=== PATIENT | female | born 1970 | race American Indian/Alaskan Native ===

== ENCOUNTER 2020-12-22 05:59 | Day surgery (SDC) | payer BC, OTHER ==
[2020-12-22] MEDS ORDERED: BACTERIOSTATIC SODIUM CHLORIDE 0.9% 30 ML VIAL INFILTRATI ONE (06:19)
[2020-12-22] MEDS ORDERED: LACTATED RINGERS 1,000 ML ONE (06:54)
[2020-12-22] MEDS ORDERED: ceFAZolin/Water 2 GM/20 ML 2 GM/20 ML SYRINGE IV ONE (06:55)
[2020-12-22] MEDS ORDERED: LACTATED RINGERS 1,000 ML IV SCH (07:00)
[2020-12-22] MEDS ORDERED: MIDAZOLAM 2 MG/2 ML INJ IV ONE (07:00)
[2020-12-22] MEDS ORDERED: ceFAZolin/STERILE WATER 2 GM/20 ML SYRINGE IV NR (07:00)
--- NOTE | 2020-12-22 07:05 | Anesthesia Consultation ---
Anesthesia Consult and Med Hx Date of service: 12/22/20 - Airway Anesthetic Teeth Evaluation: Good ROM Head & Neck: Adequate Mental/Hyoid Distance: Adequate Mallampati Class: Class II Intubation Access Assessment: Good - Pulmonary Exam CTA: Yes - Cardiac Exam Cardiac Exam: RRR - Pre-Operative Health Status ASA Pre-Surgery Classification: ASA2 Proposed Anesthetic Plan: General - Cardiovascular System Hx Hypertension: Yes (Beta jyothi 12/22/20 am) - Central Nervous System Hx Psychiatric Problems: No - Endocrine Hx Renal Disease: Yes (history of kidney stones) Hx End Stage Renal Disease: No - Hematic Hx Anemia: Yes (vaginal bleeding ON 11/2013 HMGB/HMCT 9.1/28.7) - Other Systems Hx Alcohol Use: Yes (Occas) Hx Cancer: No
--- NOTE | 2020-12-22 07:05 | Anesthesia Day of Surgery ---
Anesthesia Day of Surgery - Day of Surgery Patient Examined: Yes Patient H&P Reviewed: Yes Patient is NPO: Yes Beta Blockers: Yes (12/22/20 am)
[2020-12-22] MEDS ORDERED: propofoL 200 MG/20 ML VIAL IV ONE (07:16)
[2020-12-22] MEDS ORDERED: LIDOCAINE MPF (2%) 20 MG/1 ML VIAL 5 ML ONE (07:16)
[2020-12-22] MEDS ORDERED: HYDROmorphone 1 MG/1 ML INJ ONE (07:16)
[2020-12-22] MEDS ORDERED: ONDANSETRON 4 MG/2 ML INJ IV PRN (08:17)
[2020-12-22] MEDS ORDERED: HYDROmorphone 1 MG/1 ML INJ IV PRN ×2 (08:17)
[2020-12-22] MEDS ORDERED: ONDANSETRON 4 MG/2 ML INJ ONE (08:54)
--- NOTE | 2020-12-22 09:00 | Post Operative Note ---
Date of procedure: 12/22/20 Pre-op diagnosis: l renal stone Post-op diagnosis: same Findings: as above Anesthesia: GETA Estimated blood loss: none Pathology: none Condition: stable Disposition: PACU
--- NOTE | 2020-12-22 09:01 | Discharge Summary ---
Short Stay Discharge Plan Activity: other (no straining ) Weight Bearing Status: Full Weight Bearing Diet: low fat, low cholesterol, low salt Special Instructions: other (inc fluids ) Follow up with: DANNY LYLE MD [Primary Care Provider] - 7 Days JUSTICE THOMAS MD [Staff Physician] - 7 Days
[2020-12-22] MEDS ORDERED: GLYCOPYRROLATE 0.4 MG/2 ML INJ IV ONE (09:56)
[2020-12-22 10:37] VITALS: BP 115/70
--- NOTE | 2020-12-22 16:10 | Post Anesthesia Evaluation ---
- Post Anesthesia Evaluation Patient Participated: Yes Airway Patent: Yes Stable Respiratory Function: Yes Nausea/Vomiting: No Temp > 96.8F: Yes Pain Manageable: Yes Adequeate Hydration: Yes Anesthesia Complications: No Block Receding Appropriately: Not Applicable Patient on Ventilator: No
--- NOTE | 2020-12-23 03:47 | Operative Report ---
DATE OF SURGERY: 12/22/2020 PREOPERATIVE DIAGNOSES: Left renal stone, left flank pain. POSTOPERATIVE DIAGNOSES: Left renal stone, left flank pain. PROCEDURE: Left in situ lithotripsy. SURGEON: Rosalino Carroll MD ANESTHESIA: General. FINDINGS: This is a woman with a large stone in left lower pole, moderately overweight. She now presents for lithotripsy. DESCRIPTION OF PROCEDURE: The patient was brought to the lithotripsy room and placed on the table. Stone was easily localized in both the AP and oblique image. Shocks were begun at 1 kV. Renal pause was carried out and then shocks were increased gradually to a maximum of 7 kV. Excellent fragmentation was achieved. A total of 2500 shocks were given. The patient tolerated the procedure well and brought to recovery room in stable condition. TID: [id number] RECEIPT: [id number] JANELLE/SATISH/ZAIRE
== END 2020-12-22 10:50 | disposition home or self-care (01) ==
LOC: OR 05:59
PROVIDERS: ATTEND Urology
DX: N20.0 Calculus of kidney (principal); R10.9 Unspecified abdominal pain; N85.02 Endometrial intraepithelial neoplasia [EIN]; E78.00 Pure hypercholesterolemia, unspecified; I10 Essential (primary) hypertension; Z98.51 Tubal ligation status; Z90.710 Acquired absence of both cervix and uterus; Z79.899 Other long term (current) drug therapy; Z90.721 Acquired absence of ovaries, unilateral; Z98.890 Other specified postprocedural states; Z72.89 Other problems related to lifestyle; Z86.2 Personal history of diseases of the blood and blood-forming organs and certain disorders involving the immune mechanism
CPT/HCPCS: 36415; 50590; 84132; J0690; J1170; J2250; J2405; J2704; J7120